=== PATIENT | female | born 1990 | race Caucasian/White ===

== ENCOUNTER 2021-11-26 10:33 | Emergency (ER) | payer SELFPAY ==
[2021-11-26] MEDS: Ketorolac 30 MG/ML SDV IM ONE (12:15)
== END 2021-11-26 12:21 | disposition home or self-care (01) ==
LOC: DL.ED 10:33
DX: S92.532A Displaced fracture of distal phalanx of left lesser toe(s), initial encounter for closed fracture (principal); X58.XXXA Exposure to other specified factors, initial encounter
CPT/HCPCS: 73630; 96372; 99283; J1885